=== PATIENT | male | born 1960 | race Caucasian/White ===

== ENCOUNTER 2022-05-28 13:22 | Outpatient (CLI) | payer OTHER, SELFPAY ==
[2022-05-28 16:19] LABS: Albumin* 4.6 g/dL (3.3-5.0)
[2022-05-28 16:22] LABS: Alanine Aminotransferase* 38 U/L (4-50); Alkaline Phosphatase* 67 U/L (40-150); Aspartate Amino Transferase* 28 U/L (12-35); Bilirubin Direct* 0.2 mg/dL (0.0-0.5); Bilirubin Total* 0.4 mg/dL (0.1-1.5); Total Protein* 7.1 g/dL (6.0-8.3)
== END 2022-05-28 13:23 | disposition home or self-care (01) ==
PROVIDERS: PCP Nurse Practitioner Family; Visit Provider Nurse Practitioner Family
DX: Z00.00 Encounter for general adult medical examination without abnormal findings (principal); Z51.81 Encounter for therapeutic drug level monitoring
CPT/HCPCS: 80076